=== PATIENT | female | born 1965 | race Caucasian/White ===

== ENCOUNTER 2018-11-29 04:46 | Emergency (ER) | payer OTHER, BC ==
[2018-11-29] MEDS: ACETAMINOPHEN 500 MG TAB PO (05:21)
[2018-11-29] MEDS: IBUPROFEN 600 MG TAB PO (06:03)
== END 2018-11-29 07:16 | disposition home or self-care (01) ==
LOC: E/R 04:46
DX: G60.0 Hereditary motor and sensory neuropathy (principal); R40.2142 Coma scale, eyes open, spontaneous, at arrival to emergency department; R40.2252 Coma scale, best verbal response, oriented, at arrival to emergency department; R40.2362 Coma scale, best motor response, obeys commands, at arrival to emergency department; J44.9 Chronic obstructive pulmonary disease, unspecified; J45.909 Unspecified asthma, uncomplicated; F17.210 Nicotine dependence, cigarettes, uncomplicated; Z71.6 Tobacco abuse counseling
CPT/HCPCS: 73590; 93971; 99284-25

== ENCOUNTER 2018-12-02 21:57 | Emergency (ER) | payer SELFPAY, OTHER | END 2018-12-02 22:10 | disposition left against medical advice (07) | LOC: E/R 21:57 | DX: Z53.21 Procedure and treatment not carried out due to patient leaving prior to being seen by health care provider (principal) ==

== ENCOUNTER 2019-05-12 11:44 | Emergency (ER) | payer OTHER ==
[2019-05-12] MEDS: OXYCODONE/ACETAMINOPHEN (5/325) TAB PO (13:05)
[2019-05-12] MEDS: ONDANSETRON (ODT) 4 MG TAB ODT (13:05)
[2019-05-12] MEDS: KETOROLAC 30 MG INJ IM (14:14)
== END 2019-05-12 14:33 | disposition home or self-care (01) ==
LOC: E/R 11:44
DX: G43.909 Migraine, unspecified, not intractable, without status migrainosus (principal); J44.9 Chronic obstructive pulmonary disease, unspecified
CPT/HCPCS: 70450; 96372; 99285-25